=== PATIENT | female | born 1945 | race Caucasian/White ===

== ENCOUNTER 2021-10-13 14:04 | Inpatient (IN) | payer MEDICARE, BC ==
[~2021-10-13] VITALS: Ht 162.6 cm; Wt 77.6 kg
[2021-10-13 19:50] VITALS: BP 128/61
--- NOTE | 2021-10-13 19:50 | NUR ---
Received patient, new admission from [facility] per [facility]. Alert and oriented x4, no shortness of breath, no complaint of pain at this time, Call light placed within reach. Routine admission care done.
[2021-10-13] MEDS ORDERED: ONDA-104 PO (20:54)
[2021-10-13] MEDS ORDERED: OMEG1CAP18 PO (20:54)
[2021-10-13] MEDS ORDERED: PANT40TA49 PO (20:54)
[2021-10-13] MEDS ORDERED: MAG-55 PO (20:54)
[2021-10-13] MEDS ORDERED: ASPI-612 PO (20:54)
[2021-10-13] MEDS ORDERED: CLOP75TA15 PO (20:54)
[2021-10-13] MEDS ORDERED: HYDR-3973 PO (20:54)
[2021-10-13] MEDS ORDERED: ZOLP5TAB8 PO (20:54)
[2021-10-13] MEDS ORDERED: CHOL200013 PO (20:54)
[2021-10-13] MEDS ORDERED: OXYCODONE HCL 5 MG TABLET PO PRN (23:30)
[2021-10-14 04:00] VITALS: BP 129/52
[2021-10-14] MEDS: HYDROCODONE/APAP 5-325MG TABLET PO PRN ×3 (04:06→20:10)
--- NOTE | 2021-10-14 05:42 | NUR ---
Slept well, complaint of pain, [place] 5/325mg PO given, relieved after an hour. Patient in fair condition
[2021-10-14 07:53] VITALS: BP 124/49
[2021-10-14] MEDS: REMEDY ESSENTIAL ZINC PASTE 113 GM TOP SCH ×2 (09:19→20:31)
[2021-10-14 15:10] VITALS: BP 110/50
--- NOTE | 2021-10-14 15:29 | NUR ---
patient is alert, oriented x4, no sob, resp even nonlabored,skin warm and dry to touch, patient refused to turn on her bed alarm for safety, and transfer herself from bed to wheelchair and from wheelchair to bed, does not like to call the nurse, explained patient about safety and call nurse for help for safety, patient verbalized understanding of it.
--- NOTE | 2021-10-14 16:20 | NUR ---
DR [place] made aware to recon the meds
[2021-10-14] MEDS ORDERED: MAG HYDROX/AL HYDROX/SIMETH 30 ML LIQUID UDC PO PRN (17:45)
[2021-10-14] MEDS ORDERED: PANTOPRAZOLE SODIUM 40 MG TABLET.DR PO ONE (18:45)
[2021-10-14] MEDS ORDERED: ZOLPIDEM 5 MG TABLET PO PRN (18:45)
[2021-10-14] MEDS ORDERED: HYDROCODONE/APAP 5-325MG TABLET PO PRN (18:45)
[2021-10-14] MEDS ORDERED: ONDANSETRON HCL 4 MG TABLET PO PRN (18:45)
[2021-10-14 20:00] VITALS: BP 126/52
--- NOTE | 2021-10-14 20:10 | NUR ---
Complaint of right hip pain in scale of 9/10. Requested [place] 1 tab oral given as ordered and needed. Will monitor.
[2021-10-15] MEDS: PANTOPRAZOLE SODIUM 40 MG TABLET.DR PO SCH (05:51)
[2021-10-15] MEDS: HYDROCODONE/APAP 5-325MG TABLET PO PRN ×3 (05:56→23:12)
[2021-10-15 06:47] LABS: HEMATOCRIT 24.1 % (31.2-41.9); MEAN CORPUSCULAR HEMOGLOBIN 34.5 uug (24.7-32.8); MEAN CORPUSCULAR VOLUME 96.9 fL (75.5-95.3); PLATELET COUNT (AUTO) 201 K/uL (179-408)
[2021-10-15 07:11] LABS: THYROID STIMULATING HORMONE 1.172 mIU/mL (0.358-3.740)
[2021-10-15 07:36] LABS: BILIRUBIN,TOTAL 1.3 mg/dL (0.2-1.0); CREATININE 0.7 mg/dL (0.6-1.3); POTASSIUM 3.9 mmol/L (3.5-5.1); TOTAL PROTEIN, SERUM 6.9 g/dL (6.4-8.2)
[2021-10-15 08:11] VITALS: BP 105/45
[2021-10-15] MEDS ORDERED: CHOLECALCIFEROL 2000 UNIT PO SCH (09:00)
[2021-10-15] MEDS ORDERED: ASPIRIN EC 81 MG TABLET.DR PO SCH (09:00)
[2021-10-15] MEDS: CHOLECALCIFEROL 1,000 UNIT TABLET PO SCH (10:43)
[2021-10-15] MEDS: OMEGA-3 FATTY ACIDS/FISH OIL CAPSULE PO SCH (10:43)
[2021-10-15] MEDS: CLOPIDOGREL 75 MG TABLET PO SCH (10:44)
[2021-10-15] MEDS: REMEDY ESSENTIAL ZINC PASTE 113 GM TOP SCH ×2 (10:44→20:43)
[2021-10-15 15:58] VITALS: BP 149/64
[2021-10-15 20:00] VITALS: BP 127/46
[2021-10-16 04:19] VITALS: BP 129/64
--- NOTE | 2021-10-16 05:09 | NUR ---
Admitted for pelvic ring fracture. No surgical intervention noted. OOB to bedside commode with supervision. Voiding well. No BM noted this shift. All needs attended and met. VSS. Medicated for pain as needed. Relief noted. Kept comfortable.
[2021-10-16] MEDS: PANTOPRAZOLE SODIUM 40 MG TABLET.DR PO SCH (06:04)
[2021-10-16 08:00] VITALS: BP 91/49
[2021-10-16] MEDS: CLOPIDOGREL 75 MG TABLET PO SCH (08:11)
[2021-10-16] MEDS: OMEGA-3 FATTY ACIDS/FISH OIL CAPSULE PO SCH (08:11)
[2021-10-16] MEDS: CHOLECALCIFEROL 1,000 UNIT TABLET PO SCH (08:11)
[2021-10-16] MEDS: REMEDY ESSENTIAL ZINC PASTE 113 GM TOP SCH ×2 (08:11→20:11)
[2021-10-16] MEDS: HYDROCODONE/APAP 5-325MG TABLET PO PRN ×2 (08:16→16:07)
--- NOTE | 2021-10-16 13:59 | NUR ---
INDIVIDUALIZED PLAN OF CARE
[2021-10-16 16:13] VITALS: BP 120/52
[2021-10-16 20:00] VITALS: BP 116/57
--- NOTE | 2021-10-16 20:00 | NUR ---
PATIENT ASLEEP IN BED UPON START OF SHIFT. EASILY AROUSABLE. DENIES PAIN OR DISCOMFORT. NO RESP. DISTRESS NOTED. CALL LIGHT IN REACH. ALL NEEDS ATTENDED. WILL CONTINUE TO MONITOR AND ASSESS.
--- NOTE | 2021-10-16 23:42 | NUR ---
assumed care from Nurse Rizzo; pt resting on bed; not in distress; safety measures continued.
[2021-10-17] MEDS: HYDROCODONE/APAP 5-325MG TABLET PO PRN ×4 (00:19→20:04)
[2021-10-17 04:36] VITALS: BP 127/51
[2021-10-17] MEDS: PANTOPRAZOLE SODIUM 40 MG TABLET.DR PO SCH (06:03)
[2021-10-17 08:18] VITALS: BP 147/53
[2021-10-17] MEDS: CLOPIDOGREL 75 MG TABLET PO SCH (09:24)
[2021-10-17] MEDS: OMEGA-3 FATTY ACIDS/FISH OIL CAPSULE PO SCH (09:24)
[2021-10-17] MEDS: CHOLECALCIFEROL 1,000 UNIT TABLET PO SCH (09:24)
[2021-10-17] MEDS: CYANOCOBALAMIN 1000 MCG/ML VIAL IM SCH (09:24)
[2021-10-17] MEDS: REMEDY ESSENTIAL ZINC PASTE 113 GM TOP SCH ×2 (09:25→20:07)
[2021-10-17 15:53] VITALS: BP 151/66
--- NOTE | 2021-10-17 19:49 | NUR ---
Received patient in bed. AAOX4. Patient denies SOB or dizziness, however complains of pain, will give PRN medication. Safety precautions initiated. Call light within reach, bed in locked position. Will continue to monitor.
[2021-10-17 20:17] VITALS: BP 156/57
[2021-10-17 20:50] VITALS: BP 126/50
--- NOTE | 2021-10-17 20:50 | NUR ---
Patient complained of having pain, BP slightly elevated at 159/76mmhg, PRN [place] given to reduce pain and BP. BP now is 126/48mmhg. Will continue to monitor.
--- NOTE | 2021-10-18 00:49 | NUR ---
Patient complained of having trouble sleeping, PRN ambien given.
[2021-10-18 04:17] VITALS: BP 134/60
--- NOTE | 2021-10-18 05:45 | NUR ---
patient slept intermittently through the night. No acute distress noted at this time. Able to ambulate to bedside commode. Compliant with patient medication regimen. All needs attended to and met. Safety precautions maintained. will endorse to day shift.
[2021-10-18] MEDS: HYDROCODONE/APAP 5-325MG TABLET PO PRN ×2 (06:08→12:44)
[2021-10-18] MEDS: PANTOPRAZOLE SODIUM 40 MG TABLET.DR PO SCH (06:08)
--- NOTE | 2021-10-18 06:32 | NUR ---
patient complained of having pain, PRN [place] given. Will endorse to day shift.
[2021-10-18 08:37] VITALS: BP 124/54
[2021-10-18] MEDS: OMEGA-3 FATTY ACIDS/FISH OIL CAPSULE PO SCH (08:53)
[2021-10-18] MEDS: CYANOCOBALAMIN 1000 MCG/ML VIAL IM SCH (08:53)
[2021-10-18] MEDS: CHOLECALCIFEROL 1,000 UNIT TABLET PO SCH (08:53)
[2021-10-18] MEDS: REMEDY ESSENTIAL ZINC PASTE 113 GM TOP SCH (08:53)
[2021-10-18] MEDS: CLOPIDOGREL 75 MG TABLET PO SCH ×2 (08:53→08:56)
--- NOTE | 2021-10-18 10:41 | NUR ---
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 No acute distress identified, no significant changes noted. will continue to monitor.
[2021-10-18] MEDS ORDERED: MUPIROCIN 2% OINT 22 GM TUBE TP SCH (10:45)
[2021-10-18] MEDS ORDERED: HYDR-3980 PO (13:23)
--- NOTE | 2021-10-18 14:30 | NUR ---
Discharged patient via ambulance, dc instructions given and signed. belonging list signed. vs wnl. no distress identified. skin intact. no concerns identified during the shift. rx given and cd upon dc.
[2021-10-19] MEDS ORDERED: ENSURE ENLIVE (VAN) 240 ML LIQUID PO SCH (09:00)
== END 2021-10-18 14:30 | disposition home health service (06) | DRG 560 ==
PROVIDERS: ADMIT Internal Medicine; ATTEND Physical Medicine & Rehabilitation Pain Medicine
DX: S32.810D Multiple fractures of pelvis with stable disruption of pelvic ring, subsequent encounter for fracture with routine healing (principal); D68.59 Other primary thrombophilia; I25.10 Atherosclerotic heart disease of native coronary artery without angina pectoris; I25.2 Old myocardial infarction; Z95.5 Presence of coronary angioplasty implant and graft; Z88.0 Allergy status to penicillin; W18.30XD Fall on same level, unspecified, subsequent encounter; D53.9 Nutritional anemia, unspecified; E11.65 Type 2 diabetes mellitus with hyperglycemia; E53.8 Deficiency of other specified B group vitamins; E66.9 Obesity, unspecified; Z68.29 Body mass index [BMI] 29.0-29.9, adult; E78.5 Hyperlipidemia, unspecified; I27.20 Pulmonary hypertension, unspecified; I70.0 Atherosclerosis of aorta
CPT/HCPCS: 36415; 72170; 83735; 84100; 84443; 85025; 97161; A4663; J3420